=== PATIENT | male | born 1985 | race Caucasian/White ===

== ENCOUNTER 2017-12-18 21:28 | Emergency (ER) | payer OTHER ==
[~2017-12-18] VITALS: Ht 154.9 cm; Wt 69.9 kg
[~2017-12-18 21:28] MED LIST: KEFLEX500 MG PO; LOTRIMIN1% T; MOTRIN800 MG PO
[2017-12-18] MEDS ORDERED: NAPROSYN500 MG PO (22:04)
== END 2017-12-18 22:20 | disposition home or self-care (01) ==
LOC: ED 21:28
DX: S05.02XA Injury of conjunctiva and corneal abrasion without foreign body, left eye, initial encounter (principal); F17.200 Nicotine dependence, unspecified, uncomplicated; W22.8XXA Striking against or struck by other objects, initial encounter; Y93.89 Activity, other specified; Y92.89 Other specified places as the place of occurrence of the external cause; Y99.9 Unspecified external cause status